=== PATIENT | male | born 1960 | race Two or more races ===

== ENCOUNTER 2018-04-22 21:35 | Emergency (ER) | payer OTHER ==
[~2018-04-22] VITALS: Ht 175.3 cm; Wt 59.0 kg
--- NOTE | 2018-04-22 21:49 | Emergency Room Report ---
History of Present Illness General Chief Complaint: Generalized Weakness Source: Patient, EMS Present Illness HPI This is a 60-year-old male who is homeless. He has no medical problem. He does not take any medication. He presents with chief complaint of joint weakness for last 3 days. Fever or chills. No nausea no vomiting. Because of increasing weakness, he called 911. EMS said his blood sugars over 500. Denies any history of diabetes. Nothing made it better. Nothing made it worse. He felt nauseous. Unable to eat anything for last few days. Denies any drug use. Alcohol few days ago. Allergies: Coded Allergies: No Known Allergies (Unverified , 04/22/18) Patient History Past Medical History: see triage record, old chart reviewed Past Surgical History: other Pertinent Family History: none Social History: Reports: alcohol use Immunizations: other Reviewed Nursing Documentation: PMH: Agreed; PSxH: Agreed Nursing Documentation-PM Past Medical History: No History, Except For Hx Hypertension: Yes Hx Diabetes: Yes Review of Systems Constitutional: Reports: malaise, weakness Eye: Denies: eye pain, blurred vision ENT: Denies: ear pain, nose congestion, throat swelling Respiratory: Reports: cough; Denies: shortness of breath Cardiovascular: Denies: chest pain, palpitations Gastrointestinal: Denies: abdominal pain, diarrhea, nausea, vomiting Musculoskeletal: Denies: back pain, joint pain Skin: Denies: rash Neurological: Denies: headache, numbness Endocrine: Denies: increased thirst, increased urine Hematologic/Lymphatic: Denies: easy bruising All Other Systems: negative except mentioned in HPI Physical Exam Vital Signs Date Time Temp Pulse Resp B/P (MAP) Pulse Ox O2 Delivery O2 Flow Rate FiO2 04/22/18 21:17 99.4 109 14 158/89 98 Room Air 99.3 vitals with tachycardia Sp02 EP Interpretation: reviewed, normal General Appearance: alert, moderate distress Head: normocephalic, atraumatic Eyes: bilateral eye PERRL, bilateral eye EOMI ENT: hearing grossly normal, normal pharynx Neck: full range of motion, supple, no meningismus Respiratory: chest non-tender, lungs clear, normal breath sounds Cardiovascular #1: regular rate, rhythm, no murmur Gastrointestinal: normal bowel sounds, non tender, no mass, no organomegaly, no bruit, non-distended Musculoskeletal: back normal, gait/station normal, normal range of motion Neurologic: alert, oriented x3 Psychiatric: mood/affect normal Skin: warm/dry Medical Decision Making Diagnostic Impression: Primary Impression: New onset type 2 diabetes mellitus Additional Impressions: ARF (acute renal failure) Qualified Codes: N17.9 - Acute kidney failure, unspecified Hypertension Qualified Codes: I10 - Essential (primary) hypertension Episode of generalized weakness ER Course Patient presents with new-onset diabetes and renal failure. No evidence of DKA. Blood sugar improving with IV fluid and insulin. Will admit for further workup. He may need social sciences lecturer service for placement. I contacted Dr. Waddell who will admit for Dr. Humphries. EKG Diagnostic Results Rate: tachycardiac Rhythm: NSR ST Segments: no acute changes Rhythm Strip Diag. Results EP Interpretation: yes Rate: 94 Rhythm: NSR, no PVC's, no ectopy Last Vital Signs Date Time Temp Pulse Resp B/P (MAP) Pulse Ox O2 Delivery O2 Flow Rate FiO2 04/22/18 21:17 99.4 109 14 158/89 98 Room Air 99.3 Status: improved Disposition: ADMITTED INPATIENT Condition: Serious KELLY MARKS M.D. Apr 22, 2018 21:49
[2018-04-22 22:00] LABS: HEMATOCRIT 40.4 % (42.0-52.0); HEMOGLOBIN 13.3 G/DL (14.2-18.0); MEAN CORPUSCULAR VOLUME 86 FL (80-99); PLATELET COUNT 307 K/UL (150-450); RED BLOOD COUNT 4.69 M/UL (4.70-6.10); RED CELL DISTRIBUTION WIDTH 11.6 % (11.6-14.8); WHITE BLOOD COUNT 13.8 K/UL (4.8-10.8)
--- NOTE | 2018-04-22 22:14 | Diagnostic Imaging Report ---
EXAM: XR Chest, 1 View CLINICAL HISTORY: SOB TECHNIQUE: Frontal view of the chest. COMPARISON: No relevant prior studies available. FINDINGS: Lungs: Unremarkable. No consolidation. Pleural space: Unremarkable. No pneumothorax. Heart: The cardiac size is top normal. Mediastinum: Unremarkable. Bones/joints: Unremarkable. IMPRESSION: No radiographic evidence of acute cardiopulmonary disease.
[2018-04-22 22:20] LABS: ALANINE AMINOTRANSFERASE 22 U/L (12-78); ALBUMIN 3.9 G/DL (3.4-5.0); ALBUMIN/GLOBULIN RATIO 0.7 (1.0-2.7); ALKALINE PHOSPHATASE 133 U/L (46-116); ANION GAP 7 mmol/L (5-15); ASPARTATE AMINO TRANSFERASE 19 U/L (15-37); BILIRUBIN,TOTAL 0.6 MG/DL (0.2-1.0); BLOOD UREA NITROGEN 39 mg/dL (7-18); CALCIUM 9.6 MG/DL (8.5-10.1); CARBON DIOXIDE 30 MMOL/L (21-32); CHLORIDE 100 MMOL/L (98-107); CREATININE 3.2 MG/DL (0.55-1.30); POTASSIUM 4.7 MMOL/L (3.5-5.1); SODIUM 137 MMOL/L (136-145)
[2018-04-22] MEDS ORDERED: Insulin Human Regular 100units/ml 3ml IV ONE (22:30)
[2018-04-22] MEDS ORDERED: NKM (23:39)
[2018-04-23 00:31] LABS: APPEARANCE,URINE CLEAR; BILIRUBIN, URINE NEGATIVE (NEGATIVE); COLOR,URINE PALE YELLOW; GLUCOSE, URINE (UA) 4+ (NEGATIVE); KETONES,URINE NEGATIVE (NEGATIVE); LEUKOCYTE ESTERASE ,URINE NEGATIVE (NEGATIVE); NITRITE,URINE NEGATIVE (NEGATIVE); PH,URINE 7 (4.5-8.0); PROTEIN,URINE 3+ (NEGATIVE); UROBILINOGEN,URINE NORMAL MG/DL (0.0-1.0)
[2018-04-23 00:33] VITALS: BP 135/85
[2018-04-23 04:02] VITALS: BP 152/89
[2018-04-23] MEDS ORDERED: Acetaminophen 500mg (ES) tab ORAL ONE (04:15)
[2018-04-23 04:49] VITALS: BP 163/98
[2018-04-23 05:08] VITALS: BP 158/88
[2018-04-23 05:17] VITALS: BP 158/88
--- NOTE | 2018-04-23 15:40 | Cardiology Report ---
APPROVED REPORT EKG Measurement Heart [id number] [place] [id number] Sinus tachycardia Pulmonary disease pattern Left anterior fascicular block Nonspecific ST and T wave abnormality Abnormal ECG
--- NOTE | 2018-04-23 15:40 | Cardiology Report ---
APPROVED REPORT EKG Measurement Heart [id number] Sinus tachycardia Pulmonary disease pattern Left anterior fascicular block T wave abnormality, consider lateral ischemia Abnormal ECG
== END 2018-04-23 05:17 | disposition short-term general hospital (02) ==
LOC: EDBD 21:35 → EMR 21:45 → EDBEDREQ 04-23 01:15 → CANBEDREQ 04-23 03:25 → EMR 04-23 05:17
DX: E11.9 Type 2 diabetes mellitus without complications (principal); N17.9 Acute kidney failure, unspecified; I10 Essential (primary) hypertension; R53.1 Weakness
CPT/HCPCS: 36415; 71045; 80053; 81003; 82009; 82962; 83735; 85007; 85025; 87081; 93005; 96361; 96374; 99284; J1815